=== PATIENT | female | born 1985 | race Two or more races ===

== ENCOUNTER 2019-03-22 07:23 | Emergency (ER) | payer SELFPAY ==
[~2019-03-22] VITALS: Ht 162.6 cm; Wt 78.9 kg
[2019-03-22 07:43] VITALS: BP 100/66
== END 2019-03-22 08:37 | disposition home or self-care (01) ==
LOC: ER 07:23
DX: T16.2XXA Foreign body in left ear, initial encounter (principal); X58.XXXA Exposure to other specified factors, initial encounter; Y93.89 Activity, other specified; Y99.8 Other external cause status; Y92.89 Other specified places as the place of occurrence of the external cause